=== PATIENT | female | born 1965 | race Caucasian/White ===

== ENCOUNTER 2016-11-13 08:21 | Emergency (ER) | payer MEDICAID, OTHER ==
[2016-11-13 08:27] VITALS: BP 150/80
--- NOTE | 2016-11-13 08:47 | ER Document Report ---
HPI - HPI Patient complains to provider of: elbow pain Onset: Yesterday Onset/Duration: Sudden - was mopping and felt a burn in her right elbow Quality of pain: Burning Pain Level: 4 Exacerbated by: Movement Relieved by: Remaining still Similar symptoms previously: No Recently seen / treated by doctor: No - DERM Skin Color: Normal Past Medical History - Social History Smoking Status: Current Every Day Smoker Family History: Reviewed & Not Pertinent Patient has suicidal ideation: No Patient has homicidal ideation: No Renal/ Medical History: Denies: Hx Peritoneal Dialysis Past Surgical History: Reports: Hx Hysterectomy, Hx Orthopedic Surgery - R knee replacement; ACL reconstruction Vertical Provider Document - CONSTITUTIONAL Agree With Documented VS: Yes Exam Limitations: No Limitations General Appearance: WD/WN, No Apparent Distress - INFECTION CONTROL TRAVEL OUTSIDE OF THE [place] IN LAST 30 DAYS: No - RESPIRATORY O2 Sat by Pulse Oximetry: 97 - CARDIOVASCULAR Pulses: Normal: Radial Notes: cap refill < 2 seconds in BUE - MUSCULOSKELETAL/EXTREMETIES Musculoskeletal/Extremeties: MAEW, FROM, Tender - olecranon, No Edema. 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 11/13/16 09:21 No evidence of fracture dislocation noted on x-ray. Evidence of medial epicondyle bone spur and given underlying history patient is likely suffering from medial epicondylitis. Patient placed in Casper wrap and educated on rest, ice , compression, elevation, anti-inflammatories and follow-up with orthopedics. Patient is agreeable with plan. - Vital Signs Vital signs: Temp Pulse Resp BP Pulse Ox 98.4 F 70 17 150/80 H 97 11/13/16 08:22 11/13/16 08:22 11/13/16 08:22 11/13/16 08:22 11/13/16 08:22 - Diagnostic Test Radiology reviewed: Image reviewed, Reports reviewed Discharge - Discharge Clinical Impression: Medial epicondylitis of elbow Qualifiers: Laterality: right Qualified Code(s): M77.01 - Medial epicondylitis, right elbow Condition: Good Disposition: HOME, SELF-CARE Instructions: Medial Epicondylitis ([facility]), Ice Packs ([facility]), Warm Packs ([facility]), Use of Qlap-Dhk-Hggkwie Ibuprofen ([facility]), Casper Wrap ([facility]) Forms: Elevated Blood Pressure, Return to Work, Special Work Note Referrals: JULIA SANDOVAL DO [ACTIVE STAFF] - Follow up as needed [facility] [Provider Group] - Follow up in 1 week (Please follow up to be re-evaluated for your elevated blood pressure)
--- NOTE | 2016-11-13 09:20 | RADIOLOGY REPORT (SQ) ---
EXAM DESCRIPTION: ELBOW RIGHT AP/LAT COMPLETED DATE/TIME: 11/13/2016 9:03 am REASON FOR STUDY: pain COMPARISON: None. NUMBER OF VIEWS: Two views. TECHNIQUE: AP and lateral radiographic images acquired of the right elbow. LIMITATIONS: Only two views FINDINGS: MINERALIZATION: Normal. BONES: No acute fracture or dislocation. Small bone spur along the right distal humerus medial epico ndyle, correlates with the area of pain. Patient may have conjoined flexor tendinopathy or mild medi al epicondylitis JOINT: No effusion. SOFT TISSUES: No soft tissue swelling. No foreign body. OTHER: No other significant finding. IMPRESSION: No acute fracture. Small bone spur along the right distal humerus medial epicondyle, patient may have conjoined flexor t endinopathy or mild medial epicondylitis TECHNICAL DOCUMENTATION: JOB ID: [id number] [employer]- All Rights Reserved
== END 2016-11-13 09:39 | disposition home or self-care (01) ==
LOC: ER 08:21
DX: M77.01 Medial epicondylitis, right elbow (principal); M25.529 Pain in unspecified elbow; F17.200 Nicotine dependence, unspecified, uncomplicated
CPT/HCPCS: 99283

== ENCOUNTER 2017-09-01 02:56 | Emergency (ER) | payer SELFPAY ==
[2017-09-01] MEDS ORDERED: PREDNISONE 20 MG TABLET PO ONE (04:21)
[2017-09-01] MEDS ORDERED: IPRATROPIUM/ALBUTEROL 0.5-2.5 MG/3 ML AMPUL NEB ONE (04:21)
--- NOTE | 2017-09-01 04:22 | ER Document Report ---
HPI - HPI Pain Level: 4 Context: patient is a 52-year-old female presents to the emergency department complaining of cough, fever for the past 3 days. Patient states she is a current smoker. Denies any history of COPD or asthma. Some follow-up with regular physician. Denies any productive cough, shortness of breath, dyspnea on exertion, chest pain. - CONSTITUTIONAL Constitutional: REPORTS: Fever, Chills - EENT EENT: REPORTS: Sore Throat. DENIES: Ear Pain - CARDIOVASCULAR Cardiovascular: REPORTS: Chest pain - RESPIRATORY Respiratory: REPORTS: Trouble Breathing, Coughing Past Medical History - Social History Smoking Status: Current Every Day Smoker Chew tobacco use (# tins/day): No Frequency of alcohol use: Social Drug Abuse: None Family History: Reviewed & Not Pertinent Patient has suicidal ideation: No Patient has homicidal ideation: No Pulmonary Medical History: Reports: Hx Bronchitis Renal/ Medical History: Denies: Hx Peritoneal Dialysis Musculoskeltal Medical History: Reports Hx Arthritis Past Surgical History: Reports: Hx Hysterectomy, Hx Orthopedic Surgery - R knee replacement; ACL reconstruction Vertical Provider Document - CONSTITUTIONAL Agree With Documented VS: Yes Notes: PHYSICAL EXAM GENERAL: Alert, interacts well. HEENT: NCAT, pale conjunctiva, extraocular movements intact, pupils PERRL. external ear normal, no evidence of external auditory canal tenderness, blood/ drainage, cerumen impaction, TM intact without evidence of effusion, bulging, injection, MMM, Uvula midline. Airway patent. No evidence of tonsillar enlargement, peritonsillar abscess, retropharyngeal abscess. NECK: Full range of motion. Supple. Trachea midline. LUNGS: Clear to auscultation bilaterally, no wheezes, rales, or rhonchi. No respiratory distress. HEART: Regular rate and rhythm. No murmurs, gallops, or rubs. EXTREMITIES: Moves all 4 extremities spontaneously. No edema, radial and dorsalis pedis pulses 2/4 bilaterally. No cyanosis. NEUROLOGICAL: Alert and oriented x4. Normal speech. PSYCH: Normal affect, normal mood. SKIN: Warm, dry, normal turgor. No rashes or lesions noted. - INFECTION CONTROL TRAVEL OUTSIDE OF THE [place] IN LAST 30 DAYS: No Course - Re-evaluation Re-evalutation: 09/01/17 05:49 Patient presents with symptoms most consistent with acute bronchitis. Patient is very well in appearance, well hydrated, ambulatory pulse ox 92-94% and ambulating around the department without difficulty. Based on history, exam, vitals, no imaging or laboratories were obtained as the presentation is most consistent with bronchitis. I do not suspect an acute bacterial tracheitis, epiglottitis, pneumonia, strep pharyngitis, or acute meningitis based on exam, vitals and history. The patient will be discharged home with very clear instructions to the patient on indications to return to the emergency department. She is in agreement with this plan and verbalized indications to return to the emergency department. - Diagnostic Test Radiology reviewed: Image reviewed, Reports reviewed - EKG Interpretation by Me EKG shows normal: Sinus rhythm Rate: Normal Rhythm: NSR When compared to previous EKG there are: No significant change Discharge - Discharge Clinical Impression: Cough Condition: Good Disposition: HOME, SELF-CARE Additional Instructions: BRONCHITIS: You have acute bronchitis. This disease is an infection or inflammation of the air passageways in your lungs. Symptoms usually include cough, low grade fever, shortness of breath, and wheezing. The cough usually persists for a couple of weeks. Most cases of bronchitis get better without antibiotics. We prescribe antibiotics when we believe bacteria are damaging your airways, or if there's high risk the bronchitis will worsen into pneumonia. Increase your fluid intake. A cool mist humidifier may make your lungs more comfortable. An expectorant (cough medicine that loosens phlegm) can help. If you smoke, STOP!!! Recovery from bronchitis can be somewhat slow, but you should see improvement within a day or two. Repeated episodes of bronchitis may result in lung damage -- for example, chronic bronchitis, recurrent pneumonias, or emphysema. Call the doctor if you develop increasing fever, shortness of breath, chest pain, bloody sputum, or otherwise worsen. If you have not improved at all after several days, contact the physician. DECONGESTANT MEDICATION: A decongestant medicine has been prescribed. Often this medicine is combined in the same tablet with an antihistamine or expectorant. This type of medicine is helpful in treating a bad cold or sinus condition, as well as in treatment of the nasal congestion of hay fever. It is not of much benefit for lung infections. Decongestant medicines are related to stimulants. They can cause an increase in blood pressure and heart rate. Persons with heart disease and high blood pressure should not take decongestants without discussing this with the physician. If you develop palpitations, chest pain, headache, or tremors, stop the medicine and consult your physician. COUGH-SUPPRESSANT & EXPECTORANT MEDICATION: You are to use a cough medication as needed for relief of symptoms. This medicine is a combination of an expectorant (to make the mucous thinner and more easily "coughed up") and a cough suppressant (to reduce the frequency of coughing). The cough-suppressant medicine is related to narcotics. You may experience mild nausea and sleepiness. Some patients who are very sensitive to narcotics may have stomach pain from this medicine. Taking the medicine with food reduces these side effects. Do not drive or work with machinery until you know how this medicine affects you. The expectorant should have no side effects. Iodine-containing expectorants (such as organidin) should not be taken by persons with active thyroid disease unless approved by your doctor. Call the doctor if you develop shortness of breath, hives, rash, itching, lightheadedness, or severe nausea and vomiting. INHALED BRONCHODILATORS: You have received a treatment of and/or prescription for an inhaled bronchodilator -- a medication which stimulates the airways in the lung to dilate. This improves the flow of air in asthma, bronchitis, and emphysema. These medicines have some similarity to adrenaline, and can cause similar side effects: shakiness, racing heart, and a sense of nervousness. These side effects decrease with time. Contact your doctor if these side effects are severe. Do not over-use the medicine. Too-frequent use of the inhaler may make it ineffective. Call your doctor if the inhaler is not controlling your symptoms at the prescribed doses. STEROID MEDICATION: You have been given an injection of or oral medicine of the cortisone/ steroid class. This medication is used to control inflammation or allergy. Nathaniel t is usually only given for a short period of time, until the acute process subsides. There are usually no side effects from short-term use of cortisone-like medications. Some persons feel an increased sense of well-being and are not sleepy at bedtime. Long-term use of cortisone medications is best avoided, unless required for a severe condition. If your condition does not remit, or relapses after the course of corticosteroid medication, you should consult your physician. USE OF ACETAMINOPHEN (Tylenol): Acetaminophen may be taken for pain relief or fever control. It's much safer than aspirin, offering a wider range of "safe" dosages. It is safe during . Some brand names are Tylenol, Panadol, Datril, Anacin 3, Tempra, and Liquiprin. Acetaminophen can be repeated every four hours. The following are maximum recommended dosages: >89 pounds or adults 650 mg to 900 mg Acetaminophen can be repeated every four hours. Maximum dose not to exceed 4000 mg a day. SMOKING: If you smoke, you should stop smoking. The tar and chemicals in cigarette smoke are harmful. Smoking has been shown to cause: emphysema chronic bronchitis lung cancer mouth and throat cancer stomach and pancreas cancer premature aging defects In addition, smoking increases ear and lung infections in children of smokers. FOLLOW-UP CARE: If you have been referred to a physician for follow-up care, call the physician s office for an appointment as you were instructed or within the next two days. If you experience worsening or a significant change in your symptoms, notify the physician immediately or return to the Emergency Department at any time for re-evaluation. Prescriptions: Benzonatate [Tessalon Perles 100 mg Capsule] 100 mg PO ASDIR PRN #40 capsule PRN Reason: Prednisone [Deltasone 20 mg Tablet] 3 tab PO DAILY 5 Days tablet Forms: Return to Work Referrals: JANUSZ ECHAVARRIA MD [COMMUNITY BASED STAFF] - Follow up in 3-5 days
[2017-09-01] MEDS: ALBUTEROL SULFATE 0.083% NEB 2.5 MG/3 ML AMPUL NEB SCH ×2 (04:29→05:02)
--- NOTE | 2017-09-01 05:11 | RADIOLOGY REPORT (SQ) ---
EXAM DESCRIPTION: CHEST 2 VIEWS CLINICAL HISTORY: cough, fever COMPARISON: None. FINDINGS: Frontal and lateral views of the chest. The cardiomediastinal silhouette has normal size and contour. No consolidation, pneumothorax, or pleural effusion. Degenerative spondylosis of the thoracic spine. Upper abdominal soft tissues are unremarkable. IMPRESSION: 1. No acute pulmonary process identified.
[2017-09-01 06:01] VITALS: BP 104/77
--- NOTE | 2017-09-01 09:44 | EKG REPORT ---
SEVERITY:- NORMAL ECG - SINUS RHYTHM : Confirmed by: Michael Cárdenas 01-Sep-2017 09:43:32
== END 2017-09-01 06:01 | disposition home or self-care (01) ==
LOC: ER 02:56
DX: R05 Cough (principal); R50.9 Fever, unspecified; R07.9 Chest pain, unspecified; F17.200 Nicotine dependence, unspecified, uncomplicated
CPT/HCPCS: 93005; 94640 ×2; 99283; 71046; 93010; J7512; J7620

== ENCOUNTER 2018-11-10 06:16 | Emergency (ER) | payer SELFPAY ==
--- NOTE | 2018-11-10 07:44 | RADIOLOGY REPORT (SQ) ---
Left hand three view on 11/10/2018 at 7:29 AM CLINICAL INDICATION: Pain across metacarpals COMPARISON: None FINDINGS: Ring was left on the thumb obscuring some detail of the first proximal phalanx. There is mild joint space narrowing in the lateral mid carpal row. There is no radiopaque foreign body. There are no fractures. Visualized joints are well aligned. IMPRESSION: No acute abnormality.
--- NOTE | 2018-11-10 08:27 | ER Document Report ---
ED General - General Chief Complaint: Hand Swelling Stated Complaint: SWOLLEN LEFT HAND Time Seen by Provider: 11/10/18 08:19 Primary Care Provider: ISRAEL MILLER MD [ACTIVE STAFF] - Follow up as needed TRAVEL OUTSIDE OF THE [place] IN LAST 30 DAYS: No - HPI Notes: 53-year-old female to the emergency department with complaints of left hand swelling and pain that began yesterday. States that she was outside with her neighbors child and their dog knocked her over and she fell backwards onto her left hand. States that she did not have pain at that time. But she did notice some progressive swelling in the hand. She states that she thought maybe she had been bit by something so she took a Benadryl to see if the swelling would go down. She states that over the night she started to wake up with some pain and the swelling was more prominent. She denies any redness or any evidence of insect bite. She has no prior history of gout. She does not have a history of elevated blood pressure. She did take Aleve this morning for the pain and states that that did help. - Related Data Allergies/Adverse Reactions: cephalexin [From Keflex] Adverse Reaction (Mild, Verified 11/13/16 08:44) Generalized rash Past Medical History - Social History Smoking Status: Current Every Day Smoker Frequency of alcohol use: Social Drug Abuse: None Family History: Reviewed & Not Pertinent Patient has suicidal ideation: No Patient has homicidal ideation: No Pulmonary Medical History: Reports: Hx Bronchitis Renal/ Medical History: Denies: Hx Peritoneal Dialysis Musculoskeletal Medical History: Reports Hx Arthritis Past Surgical History: Reports: Hx Hysterectomy, Hx Orthopedic Surgery - R knee replacement; ACL reconstruction Review of Systems - Review of Systems Constitutional: denies: Chills, Fever EENT: No symptoms reported Cardiovascular: denies: Chest pain, Palpitations, Syncope, Dizziness, Lightheaded Respiratory: denies: Cough, Short of breath Gastrointestinal: denies: Abdominal pain, Diarrhea, Nausea, Vomiting Genitourinary: No symptoms reported Musculoskeletal: Joint pain - Hand pain and swelling, Joint swelling Skin: No symptoms reported Neurological/Psychological: No symptoms reported -: Yes All other systems reviewed and negative Physical Exam - Vital signs Vitals: Temp Pulse Resp BP Pulse Ox 98.5 F 66 20 158/75 H 98 11/10/18 06:23 11/10/18 06:23 11/10/18 06:23 11/10/18 06:23 11/10/18 06:23 Interpretation: Normal, Hypertensive - General General appearance: Appears well, Alert - HEENT Head: Normocephalic, Atraumatic Eyes: Normal Pupils: PERRL - Respiratory Respiratory status: No respiratory distress Chest status: Nontender Breath sounds: Normal Chest palpation: Normal - Cardiovascular Rhythm: Regular Heart sounds: Normal auscultation Murmur: No - Extremities Hand: Tender, Swelling - To the dorsum of the left hand there is noted edema. There is no erythema or warmth to the skin. There is no evidence of abscess or skin lesion. There is no streaking erythema into the arm. There is point tenderness over the fourth metacarpal. Cap refill is less than 2 seconds in all fingers. Patient has 5 out of 5 handgrip bilaterally. Her left wrist left elbow and left shoulder are nontender to palpation. She has 5 out of 5 strength against resistance in bilateral upper extremity in flexion, extension. She did have a ring to her left thumb is easily removed with lubricant.. No: Abrasion, Deformity, Laceration, No evidence of human bite, No evidence of FB - Neurological Neuro grossly intact: Yes Cognition: Normal Orientation: AAOx4 Eloisa Coma Scale Eye Opening: Spontaneous Eloisa Coma Scale Verbal: Oriented Eloisa Coma Scale Motor: Obeys Commands Cl[place] Coma Scale Total: 15 Speech: Normal Motor strength normal: LUE, RUE, LLE, RLE Sensory: Normal - Psychological Associated symptoms: Normal affect, Normal mood - Skin Skin Temperature: Warm Skin Moisture: Dry Skin Color: Normal Course - Vital Signs Vital signs: Temp Pulse Resp BP Pulse Ox 98.0 F 53 L 16 148/88 H 100 11/10/18 09:35 11/10/18 09:35 11/10/18 09:35 11/10/18 09:35 11/10/18 09:35 - Diagnostic Test Radiology reviewed: Image reviewed, Reports reviewed Radiology results interpreted by me: 11/10/18 09:20 Fracture or dislocation - Transfer of Care Notes: 11/10/18 09:20 Impression: Left hand injury/sprain. No evidence for infectious process, there is no history for gout and exam is not consistent with a gouty arthropathy. Suspect that she injured it when she was knocked over by her neighbors dog yesterday. sHe has a negative x-ray for fracture or dislocation. Plan to Casper wrap the hand and have encouraged resting, icing. Will place on Tylenol and Medrol Dosepak. Will give follow-up for an orthopedist. Will place on light duty for work. Encouraged to return if worsening pain redness fever streaking redness into the arm. Offered Tylenol here but patient declined. Discharge - Discharge Clinical Impression: Sprain of left hand, Swelling of left hand, Injury of left hand, Elevated blood pressure reading Condition: Good Disposition: HOME, SELF-CARE Instructions: [facility], Sprain ([facility]) Additional Instructions: Keep hand wrapped. Ice the hand 3 times a day for 20 minutes at a time. Take medicines as prescribed. Follow-up with orthopedist. Return if any worsening pain redness worsening swelling streaking redness into the arm or fever. Follow up with primary care physician for further monitoring of your elevated blood pressure reading. Prescriptions: Acetaminophen [Tylenol 325 mg Tablet] 650 mg PO Q6H PRN #30 tablet PRN Reason: Methylprednisolone [Medrol Dosepack (4 mg/Tab) 21 Tab/Dosepak] 4 mg PO ASDIR PRN #21 tab.ds.pk PRN Reason: Forms: Return to Work Referrals: ISRAEL MILLER MD [ACTIVE STAFF] - Follow up as needed
[2018-11-10 09:36] VITALS: BP 148/88
== END 2018-11-10 09:41 | disposition home or self-care (01) ==
LOC: ER 06:16
DX: S63.92XA Sprain of unspecified part of left wrist and hand, initial encounter (principal); M79.642 Pain in left hand; W54.1XXA Struck by dog, initial encounter; W19.XXXA Unspecified fall, initial encounter; F17.200 Nicotine dependence, unspecified, uncomplicated; R03.0 Elevated blood-pressure reading, without diagnosis of hypertension
CPT/HCPCS: 99283

== ENCOUNTER 2019-12-07 20:21 | Emergency (ER) | payer BC ==
[2019-12-07 20:37] VITALS: BP 148/87
--- NOTE | 2019-12-07 21:01 | ER Document Report ---
ED Medical Screen (RME) - General Chief Complaint: Fall Stated Complaint: FALL,HEAD PAIN Time Seen by Provider: 12/07/19 20:52 Mode of Arrival: Ambulatory Information source: Patient Notes: 54-year-old female presented to ED for a fall with a head injury. She was on the phone with her mother when she fell hitting her head. She states she does not remember falling she does not remember hitting her head. She states she has had have several drinks today. She states that when she fell and hit her head her mother called the ambulance and they came and got her. She does not remember anything about the accident. Patient is alert and oriented at this time. She is answering questions. She states she has had several drinks today she drinks every day she smokes a pack a day and she has a history of bilateral knee surgeries with a total knee replacement to the left knee and a hysterectomy. I have greeted and performed a rapid initial assessment of this patient. A comprehensive ED assessment and evaluation of the patient, analysis of test results and completion of medical decision making process will be conducted by an additional ED providers. TRAVEL OUTSIDE OF THE [place] IN LAST 30 DAYS: No - Related Data Allergies/Adverse Reactions: cephalexin [From Keflex] Adverse Reaction (Mild, Verified 11/13/16 08:44) Generalized rash Past Medical History - Social History Frequency of alcohol use: daily Drug Abuse: None Pulmonary Medical History: Reports: Hx Bronchitis Renal/ Medical History: Denies: Hx Peritoneal Dialysis Musculoskeltal Medical History: Reports Hx Arthritis Past Surgical History: Reports: Hx Hysterectomy, Hx Orthopedic Surgery - R knee replacement; ACL reconstruction Physical Exam - Vital signs Vitals: Temp Pulse Resp BP Pulse Ox 98.4 F 78 16 148/87 H 96 12/07/19 20:35 12/07/19 20:35 12/07/19 20:35 12/07/19 20:35 12/07/19 20:35 Course - Vital Signs Vital signs: Temp Pulse Resp BP Pulse Ox 98.4 F 78 16 148/87 H 96 12/07/19 20:35 12/07/19 20:35 12/07/19 20:35 12/07/19 20:35 12/07/19 20:35
--- NOTE | 2019-12-07 22:00 | RADIOLOGY REPORT (SQ) ---
EXAM DESCRIPTION: CT HEAD WITHOUT IV CONTRAST COMPLETED DATE/TME: 12/07/2019 20:57 CLINICAL HISTORY: 54 years, Female, fall, head injury. Pt reports having "a few drinks today." COMPARISON: None. TECHNIQUE: Axial images without IV contrast. Sagittal coronal reconstruction.. All CT scanners at this facility use dose modulation, iterative reconstruction, and/or weight based dosing when appropriate to reduce radiation dose to as low as reasonably achievable (ALARA). : FINDINGS: Normal size ventricles. Mild cortical atrophy. No acute intra-axial or extra-axial abnormalities. Large retention cyst in the right maxillary sinus. Moderate mucosal thickening ethmoid air cells. No fluid levels. Mastoid air cells and bony calvarium are unremarkable. IMPRESSION: 1. No acute intracranial abnormalities. 2. Chronic sinus disease. TECHNICAL DOCUMENTATION: Quality ID # [id number]: Final reports with documentation of one or more dose reduction techniques (e.g., Automated exposure control, adjustment of the mA and/or kV according to patient size, use of iterative reconstruction technique)
== END 2019-12-07 21:00 | disposition left against medical advice (07) ==
LOC: ER 20:21
DX: S09.90XA Unspecified injury of head, initial encounter (principal); W01.0XXA Fall on same level from slipping, tripping and stumbling without subsequent striking against object, initial encounter; Y93.89 Activity, other specified; F17.200 Nicotine dependence, unspecified, uncomplicated; Z53.20 Procedure and treatment not carried out because of patient's decision for unspecified reasons
CPT/HCPCS: 70450; 99281